=== PATIENT | female | born 1950 | race Caucasian/White ===

== ENCOUNTER 2024-08-26 18:01 | Emergency (ER) | payer OTHER, MEDICARE ==
[2024-08-26] MEDS: Bacitracin Oint 1 GM U/D Packet TOP ONE (18:13)
[2024-08-26] MEDS: Diphtheria,Pertussis(Acell),Tetanus Vaccine 0.5 ML Syringe IM ONE (18:15)
[2024-08-26 18:26] LABS: BASOPHILS ABSOLUTE AUTO 0.08 K/uL (0.00-0.20); BASOPHILS PERCENT AUTO 1.2 % (0.0-1.0); EOSINOPHILS ABSOLUTE AUTO 0.17 K/uL (0.00-0.45); EOSINOPHILS PERCENT AUTO 2.5 % (0.0-6.0); HEMATOCRIT 44.2 % (37.0-47.0); HEMOGLOBIN 15.6 g/dL (12.0-16.0); IMMATURE GRAN ABSOLUTE AUTO 0.01 K/uL (0.00-0.05); IMMATURE GRAN PERCENT AUTO 0.1 % (0.0-0.4); LYMPHOCYTES ABSOLUTE AUTO 1.99 K/uL (1.00-4.80); LYMPHOCYTES PERCENT AUTO 29.1 % (24.0-44.0); MEAN CORPUSCULAR HEMOGLOBIN 31.5 pg (28.0-32.0); MEAN CORPUSCULAR HGB CONC 35.3 g/dL (32.0-36.0); MEAN CORPUSCULAR VOLUME 89.1 fL (83.0-99.0); MEAN PLATELET VOLUME 9.8 fL (9.4-12.3); MONOCYTES ABSOLUTE AUTO 0.49 K/uL (0.00-0.80); MONOCYTES PERCENT AUTO 7.2 % (0.0-8.0); NEUTROPHILS ABSOLUTE AUTO 4.11 K/uL (1.80-7.70); NEUTROPHILS PERCENT AUTO 59.9 % (41.0-71.0); PLATELET COUNT,PLT 252 K/uL (150-400); RED BLOOD CELL COUNT 4.96 M/uL (4.10-5.30); WHITE BLOOD CELL COUNT,WBC 6.85 K/uL (3.9-11.3)
[2024-08-26] MEDS: Acetaminophen 500 MG Tab PO ONE (18:28)
[2024-08-26] MEDS: Labetalol 100 MG/20 ML MDV IVPUSH ONE (18:30)
[2024-08-26 18:33] LABS: INR 0.95 (0.86-1.11)
[2024-08-26 18:43] LABS: ALANINE AMINOTRANSFERASE,ALT 34 IU/L (14-63); ALBUMIN 3.5 g/dL (3.4-5.0); ALKALINE PHOSPHATASE 96 U/L (46-116); ASPARTATE AMNIOTRANSFERASE,AST 23 IU/L (15-37); BILIRUBIN TOTAL 0.5 mg/dL (0.2-1.0); BLOOD UREA NITROGEN,BUN 21 mg/dL (7.0-18.0); CALCIUM 9.2 mg/dL (8.5-10.1); CARBON DIOXIDE,CO2 25.4 mmol/L (21.0-32.0); CHLORIDE,CL 106 mmol/L (98-107); GLUCOSE RANDOM 155 mg/dL (74-106); LIPASE 42 U/L (16-77); POTASSIUM,K 4.1 mmol/L (3.5-5.1); SODIUM,NA 141 mmol/L (136-145)
[2024-08-26 18:47] LABS: ESTIMATED GFR 59 mL/min (>60)
[2024-08-26] MEDS: Ketorolac 30 MG/ML SDV IVPUSH ONE (20:19)
== END 2024-08-26 20:34 | disposition home or self-care (01) ==
LOC: MW.ED 18:01
DX: S29.8XXA Other specified injuries of thorax, initial encounter (principal); V89.2XXA Person injured in unspecified motor-vehicle accident, traffic, initial encounter; Z88.8 Allergy status to other drugs, medicaments and biological substances; M25.511 Pain in right shoulder; M54.2 Cervicalgia
CPT/HCPCS: 36415; 70450; 71275; 72125; 80053; 83690; 85025; 85610; 90471; 90715; 93005; 96374; 96375; 99285; A9270; J1885; J1920; 93010; 99284